=== PATIENT | female | born 1955 | race Caucasian/White ===

== ENCOUNTER → 2017-04-21 | Outpatient (CLI) | payer BC | END | disposition home or self-care (01) | LOC: MRI 07:31 | DX: S43.432A Superior glenoid labrum lesion of left shoulder, initial encounter (principal); M75.122 Complete rotator cuff tear or rupture of left shoulder, not specified as traumatic; M62.81 Muscle weakness (generalized); X58.XXXA Exposure to other specified factors, initial encounter; Y93.89 Activity, other specified; Y92.89 Other specified places as the place of occurrence of the external cause; Y99.8 Other external cause status | CPT/HCPCS: 73221 ==

== ENCOUNTER → 2017-10-23 | Outpatient (CLI) | payer BC | END | disposition home or self-care (01) | LOC: ECHO 09:09 | DX: I08.1 Rheumatic disorders of both mitral and tricuspid valves (principal); I25.118 Atherosclerotic heart disease of native coronary artery with other forms of angina pectoris; I10 Essential (primary) hypertension; E11.9 Type 2 diabetes mellitus without complications; J45.909 Unspecified asthma, uncomplicated | CPT/HCPCS: 93306 ==

== ENCOUNTER → 2018-12-17 | Outpatient (CLI) | payer BC ==
[~2018-12-17] MED LIST: ASPI-482 PO; ASPI325T11 PO; ATOR40TA59 PO; AZIT250T6 PO; BUPR100T11 PO; BUSP15TA PO; CARV12.511 PO; CETI1TAB7 PO; CLOP75TA PO; DULA1.5P SQ; FENO135C PO; INSU200I SQ; INSU200I4 SQ; IPRA3AMP29 NEB; ISOS60TA2 PO; LEVO75TA5 PO; LOSA25TA54 PO; METF10007 PO; METF850T8 PO; MOME13HF2 IH; MONT10TA49 PO; OMEG1CAP2 PO; PRED20TA PO; PROP60CA36 PO; SPIR25TA5 PO; VENTOLIN HFA18 GM INH; VILA40TA PO; VIT1CAPS20 PO; VIT1TABL65 PO; VORT20TA PO; [UNRECOGNIZED DRUG - CODE] PO
--- NOTE | 2018-12-17 10:51 | CARD ---
MR#: [id number] Date of Study: 12/17/2018 Ordering Physician: JACKIE HEIN, Referring Physician: JACKIE HEIN Tech: Joy Malagon RDCS APPROVED REPORT EXAM: Two-dimensional and M-mode echocardiogram with Doppler and color Doppler. Other Information Quality : Good INDICATION Cardiac Disease: CAD 2D DIMENSIONS RVDd2.5 (2.9-3.5cm)Left Atrium(2D)4.0 (1.6-4.0cm) IVSd1.2 (0.7-1.1cm)Aortic Root(2D)2.8 (2.0-3.7cm) LVDd4.2 (3.9-5.9cm)LVOT Diameter2.2 (1.8-2.4cm) PWd1.1 (0.7-1.1cm)LVDs2.1 (2.5-4.0cm) FS (%) 30.0 %SV63.1 ml LVEF(%)60.0 (>50%) Aortic Valve AoV Peak Mina.129.6cm/sAoV VTI26.7cm AO Peak GR.6.7mmHgLVOT Peak Mina.117.3cm/s LVOT VTI 23.95cmAO Mean GR.4mmHg BREANA (VMAX)3.83zp9NBW (VTI)3.41cm2 Mitral Valve MV E Psrqmaou075.0cm/sMV DECEL COXQ727wj MV A Rcajmlei48.3cm/sMV DIC60vr E/A Ratio2.1MVA (PHT)4.26cm2 TDI E/Lateral E'13.3E/Medial E'15.3 Tricuspid Valve TR P. Vdgkyysu589ob/sRAP MSKWKABE2piGq TR Peak Gr.74knHoGZQC57iyEn Pulmonary Vein S1 Xathqppv71.3cm/sD2 Sqoimrlv44.3cm/s LEFT VENTRICLE The left ventricle is normal size. There is mild concentric left ventricular hypertrophy. The left ve ntricular systolic function is normal. The Ejection Fraction is 55-60%. There is normal LV segmental wall motion. Transmitral Doppler flow pattern is Grade II-pseudonormal filling dynamics. RIGHT VENTRICLE The right ventricle is normal size. The right ventricular systolic function is normal. ATRIA The left atrium is mildly dilated. The right atrium size is normal. The interatrial septum is intact with no evidence for an atrial septal defect or patent foramen ovale as noted on 2-D or Doppler imagi ng. AORTIC VALVE The aortic valve is calcified but opens well. Doppler and Color Flow revealed no significant aortic r egurgitation. There is no significant aortic valvular stenosis. MITRAL VALVE The mitral valve is normal in structure and function. Mitral annular calcification is mild. There is no evidence of mitral valve prolapse. There is no mitral valve stenosis. Doppler and Color-flow revea led mild mitral regurgitation. TRICUSPID VALVE The tricuspid valve is normal in structure and function. Doppler and Color Flow revealed trace to mil d tricuspid regurgitation. There is moderate pulmonary hypertension. The PA pressure was estimated at 44 mmHg. There is no tricuspid valve stenosis. PULMONIC VALVE The pulmonic valve is not well visualized. Doppler and Color Flow revealed no pulmonic valvular regur gitation. There is no pulmonic valvular stenosis. GREAT VESSELS The aortic root is normal in size. The ascending aorta is normal in size. The IVC is normal in size a nd collapses >50% with inspiration. PERICARDIAL EFFUSION There is no evidence of significant pericardial effusion. Critical Notification Critical Value: No <Conclusion> The left ventricular systolic function is normal. The Ejection Fraction is 55-60%. There is normal LV segmental wall motion. Transmitral Doppler flow pattern is Grade II-pseudonormal filling dynamics. Mild mitral regurgitation. Trace to mild tricuspid regurgitation. The PA pressure was estimated at 44 mmHg. There is no evidence of significant pericardial effusion. Signed by : Jackie Hein, Electronically Approved : 12/17/2018 10:50:56
== END | disposition home or self-care (01) ==
LOC: ECHO 10:00
PROVIDERS: ATTEND Internal Medicine Cardiovascular Disease
DX: I08.1 Rheumatic disorders of both mitral and tricuspid valves (principal); I25.118 Atherosclerotic heart disease of native coronary artery with other forms of angina pectoris
CPT/HCPCS: 93306

== ENCOUNTER 2019-01-07 09:21 | Outpatient (CLI) | payer BC ==
[~2019-01-07] VITALS: Ht 162.6 cm; Wt 109.8 kg
[2019-01-07] VITALS (8 sets, daily range): BP systolic 121–140; BP diastolic 63–74
[~2019-01-07 09:21] MED LIST changes: -ASPI325T11 PO; -AZIT250T6 PO; -BUSP15TA PO; -CLOP75TA PO; -FENO135C PO; -IPRA3AMP29 NEB; -METF10007 PO; -MONT10TA49 PO; -OMEG1CAP2 PO; -PRED20TA PO; -PROP60CA36 PO; -SPIR25TA5 PO; -VIT1CAPS20 PO; -VIT1TABL65 PO
[2019-01-07] MEDS ORDERED: IODIXANOL 320 MG/ML 100 ML VIAL. ONE (09:45)
[2019-01-07] MEDS ORDERED: LIDOCAINE 1% Multi-Dose 20 ML VIAL. ONE (09:45)
[2019-01-07] MEDS ORDERED: METF10007 PO (09:50)
[2019-01-07] MEDS ORDERED: PROP60CA36 PO (09:50)
[2019-01-07 09:59] LABS: RED BLOOD COUNT 4.38 x10^6/uL (3.50-5.40); RED CELL DISTRIBUTION WIDTH 14.2 % (11.5-14.5); WHITE BLOOD COUNT 10.1 x10^3/uL (4.0-11.0)
[2019-01-07 10:03] LABS: CALCIUM 10.6 mg/dL (8.5-10.1); CREATININE 1.1 mg/dL (0.6-1.0); GFR 50.2; POTASSIUM 4.3 mmol/L (3.5-5.1)
[2019-01-07] MEDS ORDERED: BUSP15TA PO (10:06)
[2019-01-07] MEDS ORDERED: FENO135C PO (10:06)
[2019-01-07] MEDS ORDERED: MONT10TA49 PO (10:06)
[2019-01-07] MEDS ORDERED: INSU200I4 SQ (10:07)
[2019-01-07] MEDS ORDERED: SPIR25TA5 PO (10:07)
[2019-01-07] MEDS ORDERED: VIT1TABL65 PO (10:07)
[2019-01-07] MEDS ORDERED: OMEG1CAP2 PO (10:07)
[2019-01-07] MEDS ORDERED: VIT1CAPS20 PO (10:07)
[2019-01-07 10:12] LABS: PROTHROMBIN TIME PATIENT 12.3 SEC (11.7-14.0)
[2019-01-07] MEDS ORDERED: MIDAZOLAM HCL/PF 2 MG/2 ML VIAL. ONE ×2 (10:40→11:11)
[2019-01-07] MEDS ORDERED: fentaNYL PF VIAL 100 MCG/2 ML VIAL ONE (10:40)
[2019-01-07] MEDS ORDERED: BIVALIRUDIN 250 MG VIAL. IV ONE ×2 (11:28→11:45)
[2019-01-07] MEDS ORDERED: MIDAZOLAM HCL/PF 2 MG/2 ML VIAL. IV ONE (11:30)
[2019-01-07] MEDS ORDERED: IODIXANOL 320 MG/ML 100 ML VIAL. IART ONE (11:30)
[2019-01-07] MEDS ORDERED: LIDOCAINE 1% Multi-Dose 20 ML VIAL. INJ ONE (11:30)
[2019-01-07] MEDS ORDERED: fentaNYL PF VIAL 100 MCG/2 ML VIAL IV ONE (11:30)
[2019-01-07] MEDS ORDERED: CONTRAST GIVEN. MC PRN (11:30)
[2019-01-07] MEDS ORDERED: CLOPIDOGREL BISULFATE 75 MG TABLET ONE (11:59)
[2019-01-07] MEDS ORDERED: CLOPIDOGREL BISULFATE 75 MG TABLET PO ONE (12:00)
[2019-01-07] MEDS ORDERED: IV 1/2 NORMAL SALINE 1,000 ML IV SCH (12:22)
--- NOTE | 2019-01-07 12:22 | PDOC ---
MODERATE SEDATION ASSESSMENT RISKS/ALTERNATIVES Risks/Alternatives Risks and alternatives of this type of sedation and procedure discussed with: RISK/ALTERNATIVES: Patient H & P ON CHART H & P H & P on chart and reviewed for co-morbid conditions and appropriate labs. H&P ON CHART: Yes STATUS PREG STATUS ASSESSED: N/A MEDS/ALLERGIES REVIEWED Meds/Allergies Reviewed Medications and Allergies including time and route of recently administered narcotics and sedatives. MEDS/ALLERGIES REVIEWED: Yes ASA RATING ASA RATING: II AIRWAY ASSESSMENT Airway Assessment Airway patency, oral function limitations, presence of caps, crowns, dentures, partials, and ability to extend neck assessed. AIRWAY ASSESSMENT: Yes MALLAMPATI SCORE MALLAMPATI SCORE: II PRE-SEDATION ASSESSMENT PRE-SEDATION ASSESSMENT: Yes JACKIE HEIN MD Jan 07, 2019 12:22
--- NOTE | 2019-01-07 12:28 | NUR ---
When patient moved from procedure table to cart right venous site bled. Pressure held and hemostasis obtained by 1227, will continue to monitor.
[2019-01-07] MEDS ORDERED: ACETAMINOPHEN 325 MG TABLET. PO PRN (12:30)
[2019-01-07] MEDS ORDERED: NITROGLYCERIN SUBLINGUAL 0.4 MG BOTTLE OF 25. SL PRN (12:30)
[2019-01-07] MEDS ORDERED: CLOP75TA PO (14:53)
[2019-01-07] MEDS ORDERED: ASPI325T11 PO (14:53)
--- NOTE | 2019-01-07 15:23 | NUR ---
Discharge Note: SUSAN DUNHAM Discharge instructions and discharge home medications reviewed with Patient and a copy given. All questions have been answered and understanding verbalized. The following instructions and handouts were given: cardiac cath, moderate sedation Discontinued lines and drains: Peripheral IV intact. Patient discharged to Home or Self Care with Spouse via Wheelchair
[2019-01-08] MEDS ORDERED: ASPIRIN ENTERIC COATED 325 MG TABLET.DR. PO SCH (08:00)
[2019-01-08] MEDS ORDERED: CLOPIDOGREL BISULFATE 75 MG TABLET PO SCH (08:00)
--- NOTE | 2019-01-10 11:24 | CARD ---
MR#: [id number] Date of Study: 01/07/2019 Ordering Physician: JACKIE HENNING, Referring Physician: JACKIE HENNING, Tech: RT Myranda (R) CHEY APPROVED REPORT Technologist: RT Myranda (R) CHEY Nurse: Shavonne Jeronimo RN Procedure(s) performed: 1. Right and left heart catheterization, selective coronary angiography and left ventriculography 2. Successful PCI/drug eluting stent placement to the left anterior descending artery FLUORO TIME: 10.8 MIN DOSE: 91 Gycm2 CONTRAST: 150ml SEDATION TIME: 60MIN INDICATION The indication(s) include : Refractory dyspnea on exertion concerning for unstable angina. CS Clinical Frailty Scale [facility] [place] Clinical Frailty Scale: Managing Well Heart Failure Heart Failure: No PROCEDURE NARRATIVE After explaining the risks, benefits and alternative options, informed consent was obtained from ziggy ent. Patient was brought to the cardiac Oracle Specialist and her right groin was prepped and draped in the us ual fashion. 20 mL of 2% lidocaine was infiltrated into the skin and subcutaneous drain is tissues fo r local anesthesia. Arterial and venous accesses were obtained in the right common femoral artery and vein respectively and 6 and 8 Stateless sheaths inserted. A 7.5 Stateless Concord-Genaro catheter was then adva nced under fluoroscopy guidance and intracardiac pressures, oxygen saturations and cardiac output by thermodilution method measured. Subsequently, 6 Stateless JL4 and 6 Stateless JR4 catheters were used to pe rform selective antegrade flow of the left and right coronary arteries. 6 Stateless pigtail catheter was used to perform left ventriculography. The following findings were noted. FINDINGS A. RIGHT HEART CATHETERIZATION: 1. Intracardiac pressures: Mean right atrial pressure 10 mmHg, right ventricular pressure 43/7 mmHg , pulmonary artery pressure 45/16 mmHg with mean PA pressure 26 mmHg and mean pulmonary capillary wed ge pressure 12 mmHg. Mild pulmonary hypertension. 2. Oxygen saturations: Right atrium 63.4%, pulmonary artery 68.2% and femoral arterial sheath 96.8% . No evidence of intracardiac shunt. 3. Cardiac output by thermodilution method 4.37 L/m. B. LEFT HEART CATHETERIZATION: 1. Hemodynamics: Left ventricular end-diastolic pressure 24 mmHg. No pullback gradient across the a ortic valve. 2. Left ventriculography: Normal left ventricle systolic function with ejection fraction estimated at 60%. No significant mitral regurgitation seen. 3. Coronary angiography: a. The left main coronary artery arose from the left sinus of Valsalva, gave rise to the left anteri or descending and left circumflex arteries and did not show any significant stenosis. b. The left anterior descending artery showed patent stent in the midsegment. However, just distal t o the stent there was a 90% stenosis noted. c. The left circumflex artery did not show any significant stenosis. d. The right coronary artery was a large and dominant vessel arising from the right sinus of Valsalv a that did not show any significant stenosis. INTERVENTION The left main coronary artery was engaged with a 6 Stateless XB 3.5 guide catheter and the stenosis in t he midsegment of the left anterior descending artery was crossed with a 0.014 inch [employer] water gu idewire. This was predilated with a 2.5 x 15 mm trek balloon following which this was successfully tr eated with a 2.75 x 15 mm resolute bc drug-eluting stent that was positioned with slight overlap wi th the previously placed stent. Follow-up angiography showed resolution of the stenosis to 0% with TI MT-3 distal flow. Patient tolerated the procedure well. Hemostasis was achieved using Angio-Seal and manual compression. There were no immediate complications. SHARRON Flow SHARRON Flow (Pre-Intervention): SHARRON-2 SHARRON Flow (Post-Intervention): SHARRON-3 Conclusion 1. Severe single-vessel coronary artery disease involving the left anterior descending artery 2. Successful PCI/drug eluting stent placement to the left anterior descending artery 3. Normal left ventricle systolic function with ejection fraction estimated at 60% 4. Mild pulmonary hypertension 5. No evidence of intercurrent shunt Recommendations 1. Aspirin 325 mg daily for one month followed by 81 mg daily 2. Plavix 75 mg daily for preferably one year 3. Cardiovascular risk factor modification Signed by : Jackie Henning, Electronically Approved : 01/07/2019 12:32:39
== END 2019-01-07 15:15 | disposition home or self-care (01) ==
LOC: CCL 09:21
PROVIDERS: ATTEND Internal Medicine Cardiovascular Disease
DX: I25.110 Atherosclerotic heart disease of native coronary artery with unstable angina pectoris (principal); I27.20 Pulmonary hypertension, unspecified; E11.9 Type 2 diabetes mellitus without complications; I10 Essential (primary) hypertension; J45.909 Unspecified asthma, uncomplicated; G47.33 Obstructive sleep apnea (adult) (pediatric); E78.5 Hyperlipidemia, unspecified; E03.9 Hypothyroidism, unspecified; F32.9 Major depressive disorder, single episode, unspecified; F41.9 Anxiety disorder, unspecified; Z79.01 Long term (current) use of anticoagulants; Z95.5 Presence of coronary angioplasty implant and graft; Z98.890 Other specified postprocedural states; Z72.89 Other problems related to lifestyle; Z79.84 Long term (current) use of oral hypoglycemic drugs
CPT/HCPCS: 36415; 80048; 85027; 85610; 93460; 99152; 99153; C1725; C1760; C1769; C1874; C1892; C9600; J0583; J1644; J2250; J3010; Q9967; 92928; G0269; C1771

== ENCOUNTER 2019-01-19 07:17 | Emergency (ER) | payer BC ==
[~2019-01-19] VITALS: Ht 162.6 cm; Wt 109.8 kg
[~2019-01-19 07:17] MED LIST changes: +ASPI325T11 PO; +BUSP15TA PO; +CLOP75TA PO; +FENO135C PO; +METF10007 PO; +MONT10TA49 PO; +OMEG1CAP2 PO; +PROP60CA36 PO; +SPIR25TA5 PO; +VIT1CAPS20 PO; +VIT1TABL65 PO
[2019-01-19] MEDS ORDERED: IV NORMAL SALINE 1000ML BAG 1,000 ML IV SCH (07:29)
[2019-01-19] MEDS ORDERED: methylPREDNISolone SOD SUCC PF 125 MG/2 ML VIAL. IV ONE (07:30)
[2019-01-19] MEDS ORDERED: IPRATRPIUM/ALBUTEROL 0.5/2.5MG 3 ML NEBU. NEB ONE ×3 (07:30→09:45)
--- NOTE | 2019-01-19 07:37 | PHYS DOC ---
Past Medical History Past Medical History: Asthma, CAD, Diabetes-Type II, Hypertension Additional Past Surgical Histo: PTCA Smoking: Cigarettes (The patient is a nonsmoker.) Adult General Chief Complaint Chief Complaint: SHORTNESS OF BREATH HPI HPI Patient is a 63-year-old female who presents to the emergency department for evaluation. She states that for the past 3-4 days, she has had shortness of breath, associated with wheezing. She has had a cough which had been mostly nonproductive but this morning was productive of some greenish mucus. She has not had any chest pain, although she has had some tightness of her breathing. She has not had any nausea, or vomiting, or orthopnea. She has not had any fevers or chills. She has not had any upper respiratory symptoms. There are no alleviating or exacerbating factors to her symptoms except that shortness of breath seems to be exacerbated with exertion. The patient did have a cardiac s tent placed in her LAD about 2 weeks ago at this facility, and her cath report has been reviewed. Review of Systems Review of Systems Constitutional: Denies fever or chills [] Eyes: Denies change in visual acuity, redness, or eye pain [] HENT: Denies nasal congestion or sore throat [] Respiratory: Reports cough and shortness of breath. Denies pleuritic pain.[] Cardiovascular: The patient denies any shortness of breath, chest pain, palpitations, or orthopnea [] GI: Denies abdominal pain, nausea, vomiting, bloody stools or diarrhea [] : Denies dysuria or hematuria [] Musculoskeletal: Denies back pain or joint pain [] Integument: Denies rash or skin lesions [] Neurologic: Denies headache, focal weakness or sensory changes [] Endocrine: Denies polyuria or polydipsia [] All other systems were reviewed and found to be within normal limits, except as documented in this note. Current Medications Current Medications Current Medications Medications (Trade) Dose Ordered Sig/Ibis Start Time Stop Time Status Last Admin Dose Admin Albuterol/ Ipratropium (Duoneb) 3 ml 1X ONCE 01/19/19 08:45 01/19/19 08:46 DC 01/19/19 08:47 3 ML Azithromycin 250 ml @ 250 mls/hr 1X ONCE 01/19/19 09:15 01/19/19 10:14 Methylprednisolone Sodium Succinate (SOLU-Medrol 125MG VIAL) 125 mg 1X ONCE 01/19/19 07:30 01/19/19 07:31 DC 01/19/19 07:47 125 MG Sodium Chloride 1,000 ml @ 100 mls/hr Q10H 01/19/19 07:29 01/19/19 17:28 01/19/19 07:48 100 MLS/HR Allergies Allergies Allergies Coded Allergies Type Severity Reaction Last Updated Verified Sulfa (Sulfonamide Antibiotics) Allergy Intermediate RASH 02/19/16 Yes Physical Exam Physical Exam PHYSICAL EXAM: CONSTITUTIONAL: Well developed, well nourished HEAD: normocephalic, atraumatic EENT: PERRL, EOMI. Conjunctivae normal color, sclerae non-icteric; moist mucous membranes. NECK: Supple, non-tender; no meningismus. LUNGS: There are diffuse coarse expiratory wheezes in all lung sorensen, breathing is mildly labored. Normal air movement. HEART: Regular rate and rhythm, no murmur CHEST: No deformity; non-tender ABDOMEN: The abdomen is soft, and non-tender, no masses or bruits. EXTREM: Normal ROM; no deformity, no calf tenderness. Normal pulses palpable in all extremities. There is no pedal edema. SKIN: No rash; no diaphoresis NEURO: Alert; normal speech and cognition; CN's grossly intact; strength grossly intact without focal deficit. BACK: No CVA TTP. Current Patient Data Vital Signs Vital Signs Date Time Temp Pulse Resp B/P (MAP) Pulse Ox O2 Delivery O2 Flow Rate FiO2 01/19/19 08:49 96 Room Air 01/19/19 07:32 98.4 72 36 170/80 (110) 98.4 Lab Values Laboratory Tests Test 01/19/19 08:02 White Blood Count 7.7 x10^3/uL (4.0-11.0) Red Blood Count 4.17 x10^6/uL (3.50-5.40) Hemoglobin 12.1 g/dL (12.0-15.5) Hematocrit 36.5 % (36.0-47.0) Mean Corpuscular Volume 88 fL (79-100) Mean Corpuscular Hemoglobin 29 pg (25-35) Mean Corpuscular Hemoglobin Concent 33 g/dL (31-37) Red Cell Distribution Width 13.9 % (11.5-14.5) Platelet Count 297 x10^3/uL (140-400) Neutrophils (%) (Auto) 74 % (31-73) H Lymphocytes (%) (Auto) 15 % (24-48) L Monocytes (%) (Auto) 8 % (0-9) Eosinophils (%) (Auto) 3 % (0-3) Basophils (%) (Auto) 1 % (0-3) Neutrophils # (Auto) 5.7 x10^3/uL (1.8-7.7) Lymphocytes # (Auto) 1.1 x10^3/uL (1.0-4.8) Monocytes # (Auto) 0.6 x10^3/uL (0.0-1.1) Eosinophils # (Auto) 0.2 x10^3/uL (0.0-0.7) Basophils # (Auto) 0.0 x10^3/uL (0.0-0.2) Sodium Level 143 mmol/L (136-145) Potassium Level 4.4 mmol/L (3.5-5.1) Chloride Level 106 mmol/L (98-107) Carbon Dioxide Level 26 mmol/L (21-32) Anion Gap 11 (6-14) Blood Urea Nitrogen 17 mg/dL (7-20) Creatinine 1.0 mg/dL (0.6-1.0) Estimated GFR (Cockcroft-Gault) 56.0 BUN/Creatinine Ratio 17 (6-20) Glucose Level 157 mg/dL (70-99) H Calcium Level 10.0 mg/dL (8.5-10.1) Total Bilirubin 0.3 mg/dL (0.2-1.0) Aspartate Amino Transferase (AST) 38 U/L (15-37) H Alanine Aminotransferase (ALT) 44 U/L (14-59) Alkaline Phosphatase 84 U/L (46-116) Troponin I Quantitative < 0.017 ng/mL (0.000-0.055) GY-Oft-A-Type Natriuretic Peptide 105 pg/mL (0-124) Total Protein 7.0 g/dL (6.4-8.2) Albumin 3.8 g/dL (3.4-5.0) Albumin/Globulin Ratio 1.2 (1.0-1.7) Laboratory Tests 01/19/19 08:02 Laboratory Tests 01/19/19 08:02 EKG EKG []Normal sinus rhythm with a normal rate, normal axis, normal intervals, there are no acute ischemic ST/T changes. Radiology/Procedures Radiology/Procedures PROCEDURE: CHEST PA & LATERAL EXAM: Chest, 2 views. HISTORY: Shortness of breath. COMPARISON: 04/05/2011 FINDINGS: 2 views of the chest are obtained. There is mild diffuse increased interstitial opacity. There is no consolidation, pleural effusion or pneumothorax. The heart is normal in size. There are few calcified granulomas. IMPRESSION: Suspected trace diffuse interstitial infiltrate. No consolidation.[] Course & Med Decision Making Course & Med Decision Making Pertinent Labs and Imaging studies reviewed. (See chart for details) []9:35 AM: The patient is feeling significantly better after her breathing treatments, 2, she will be given a third one. I did discuss the importance of close PCP and pulmonary follow-up, and return precautions were discussed in detail. Given her productive cough and x-ray findings the patient will be treated with antibiotics. Dragon Disclaimer Dragon Disclaimer This electronic medical record was generated, in whole or in part, using a voice recognition dictation system. Departure Departure Impression: Primary Impression: Wheezing Additional Impression: Acute dyspnea Disposition: 01 HOME, SELF-CARE Condition: STABLE Referrals: ELIUD PAYTON MD (PCP) Patient Instructions: Acute Bronchitis, Asthma, Adult, Shortness of Breath Scripts Prednisone (PREDNISONE) 20 Mg Tablet 40 MG PO DAILY for 5 Days, #10 TAB Prov: VENESSA ELMORE MD 01/19/19 Ipratropium/Albuterol Sulfate (DUONEB 0.5-3(2.5) MG/3 ML) 3 Ml Ampul.neb 3 ML NEB QID PRN for Shortness of Breath/Wheezing, #60 EACH Prov: VENESSA ELMORE MD 01/19/19 Azithromycin (AZITHROMYCIN TABLET) 250 Mg Tablet 1 PKG PO UD, #6 TAB Prov: VENESSA ELMORE MD 01/19/19 Problem Qualifiers VENESSA ELMORE MD Jan 19, 2019 07:37
[2019-01-19 08:28] LABS: BASO % 1 % (0-3); EOS # 0.2 x10^3/uL (0.0-0.7); EOS % 3 % (0-3); HEMATOCRIT 36.5 % (36.0-47.0); HEMOGLOBIN 12.1 g/dL (12.0-15.5); LYMPH # 1.1 x10^3/uL (1.0-4.8); LYMPH % 15 % (24-48); MEAN CORPUSCULAR HEMOGLOBIN 29 pg (25-35); MEAN CORPUSCULAR HGB CONC 33 g/dL (31-37); MEAN CORPUSCULAR VOLUME 88 fL (79-100); MONO # 0.6 x10^3/uL (0.0-1.1); MONO % 8 % (0-9); NEUT # 5.7 x10^3/uL (1.8-7.7); NEUT % 74 % (31-73); PLATELET COUNT 297 x10^3/uL (140-400); RED BLOOD COUNT 4.17 x10^6/uL (3.50-5.40); RED CELL DISTRIBUTION WIDTH 13.9 % (11.5-14.5); WHITE BLOOD COUNT 7.7 x10^3/uL (4.0-11.0)
[2019-01-19 08:35] LABS: POTASSIUM 4.4 mmol/L (3.5-5.1)
[2019-01-19 08:40] LABS: ALBUMIN 3.8 g/dL (3.4-5.0); ALBUMIN/GLOBULIN RATIO 1.2 (1.0-1.7); TOTAL BILIRUBIN 0.3 mg/dL (0.2-1.0)
--- NOTE | 2019-01-19 08:46 | RAD ---
EXAM: Chest, 2 views. HISTORY: Shortness of breath. COMPARISON: 04/05/2011 FINDINGS: 2 views of the chest are obtained. There is mild diffuse increased interstitial opacity. There is no consolidation, pleural effusion or pneumothorax. The heart is normal in size. There are few calcified granulomas. IMPRESSION: Suspected trace diffuse interstitial infiltrate. No consolidation. Electronically signed by: Maria E Villagran MD (01/19/2019 8:43 AM) [place] [id number]
[2019-01-19] MEDS ORDERED: AZITHRMYCN 500MG IVPB FOR OMNI 250 ML IV ONE (09:15)
[2019-01-19] MEDS ORDERED: AZIT250T6 PO (09:39)
[2019-01-19] MEDS ORDERED: PRED20TA PO (09:39)
[2019-01-19] MEDS ORDERED: IPRA3AMP29 NEB (09:39)
[2019-01-19 10:30] VITALS: BP 128/70
--- NOTE | 2019-01-19 12:07 | EKG ---
[facility] [address] [place] [address] Test Date: 2019-01-19 Test Time: 08:19:42 Pat Name: SUSAN DUNHAM Department: Room: Gender: F Running Specialist: : 1955 Requested By: VENESSA ELMORE Order Number: [id number] Reading MD: Wilver Pete MD Measurements Intervals [place] Rate: 76 P: 39 HI: 158 QRS: 29 QRSD: 84 T: 29 QT: 394 QTc: 447 Interpretive Statements SINUS RHYTHM NORMAL ECG Electronically Signed On 02-02-2019 8:48:55 COORDINATE MEASURING EQUIPMENT OPERATOR by Wilver Pete MD
== END 2019-01-19 11:20 | disposition home or self-care (01) ==
LOC: ER 07:17
DX: R06.2 Wheezing (principal); R06.02 Shortness of breath; I25.10 Atherosclerotic heart disease of native coronary artery without angina pectoris; E11.9 Type 2 diabetes mellitus without complications; I10 Essential (primary) hypertension; Z88.2 Allergy status to sulfonamides
CPT/HCPCS: 36415; 71046; 80053; 83880; 84484; 85025; 93005; 94640; 96365; 96375; 99285; J0456; J2930; J7030; J7620

== ENCOUNTER → 2020-10-19 | Outpatient (CLI) | payer BC ==
[~2020-10-19] MED LIST changes: +AZIT250T6 PO; +IPRA3AMP29 NEB; -ISOS60TA2 PO; +ISOS60TA55 PO; +PRED20TA PO
--- NOTE | 2020-10-19 16:18 | CARD ---
MR#: [id number] Date of Study: 10/19/2020 Ordering Physician: JACKIE HEIN, Referring Physician: Ed BRASHER: David Reaves [facility] APPROVED REPORT EXAM: Two-dimensional and M-mode echocardiogram with Doppler and color Doppler. Other Information Quality : FairHR: 70bpm Rhythm : NSR INDICATION Palpitations Cardiac Disease: CAD RISK FACTORS Hypertension Obesity Hyperlipidemia Diabetes 2D DIMENSIONS Left Atrium(2D)4.5 (1.6-4.0cm)IVSd1.0 (0.7-1.1cm) Aortic Root(2D)2.8 (2.0-3.7cm)LVDd4.4 (3.9-5.9cm) PWd1.0 (0.7-1.1cm)LVDs2.6 (2.5-4.0cm) FS (%) 41.8 %SV65.5 ml Aortic Valve AoV Peak Mina.124.9cm/sAoV VTI24.8cm AO Peak GR.6.2mmHgLVOT Peak Mina.112.8cm/s AO Mean GR.4mmHg Mitral Valve MV E Uxosalqm10.8cm/sMV E Peak Gr.2mmHg MV DECEL [id number] A Vrooixik18.6cm/s MV E Mean Gr.1mmHgE/A Ratio1.2 Pulmonary Valve PV Peak Wwvcydft85.3cm/s Tricuspid Valve TR P. Mihmmahx665el/sTR Peak Gr.20mmHg Pulmonary Vein S1 Lulluvgt92.4cm/sD2 Rsjwnmdc40.2cm/s LEFT VENTRICLE The left ventricle is normal size. There is normal left ventricular wall thickness. The left ventricu lar systolic function is normal. The ejection fraction is 55 to 60%. There is normal LV segmental wa ll motion. The left ventricular diastolic function and filling is normal for age. No left ventricle t hrombus noted on this study. There is no ventricular septal defect visualized. There is no left ventr icular aneurysm. There is no mass noted in the left ventricle. RIGHT VENTRICLE The right ventricle is normal size. There is normal right ventricular wall thickness. The right ventr icular systolic function is normal. ATRIA The left atrium is mildly dilated. The right atrium size is normal. The interatrial septum is intact with no evidence for an atrial septal defect or patent foramen ovale as noted on 2-D or Doppler imagi ng. AORTIC VALVE The aortic valve is normal in structure and function. Doppler and Color Flow revealed no significant aortic regurgitation. There is no significant aortic valvular stenosis. There is no aortic valvular v egetation. MITRAL VALVE The mitral valve is normal in structure and function. There is no evidence of mitral valve prolapse. There is no mitral valve stenosis. Doppler and Color-flow revealed mild mitral regurgitation. TRICUSPID VALVE The tricuspid valve is normal in structure and function. Doppler and Color Flow revealed no tricuspid valve regurgitation noted. GREAT VESSELS The aortic root is normal in size. The ascending aorta is normal in size. The pulmonary artery is nor mal. The IVC is normal in size and collapses >50% with inspiration. PERICARDIAL EFFUSION There is no pleural effusion. There is no evidence of significant pericardial effusion. Critical Notification Critical Value: No <Conclusion> The left ventricle is normal size. The left ventricular systolic function is normal. The ejection fraction is 55 to 60%. Doppler and Color Flow revealed no significant aortic regurgitation. There is no significant aortic valvular stenosis. Doppler and Color-flow revealed mild mitral regurgitation. Doppler and Color Flow revealed no tricuspid valve regurgitation noted. Signed by : Elliott Irving MD Electronically Approved : 10/19/2020 16:17:49
== END ==
LOC: ECHO 14:56
PROVIDERS: ATTEND Internal Medicine Cardiovascular Disease
DX: I34.0 Nonrheumatic mitral (valve) insufficiency (principal); I25.118 Atherosclerotic heart disease of native coronary artery with other forms of angina pectoris
CPT/HCPCS: 93306